=== PATIENT | male | born 1970 | race Caucasian/White ===

== ENCOUNTER 2018-03-19 00:54 | Emergency (ER) | payer OTHER ==
[~2018-03-19] VITALS: Ht 182.8 cm; Wt 81.6 kg
[~2018-03-19 00:54] MED LIST: IBU-8800 MG PO; NAPROSYN375 MG PO; NAPROSYN500 MG PO; ULTRAM50 MG PO; [UNRECOGNIZED DRUG - REMARK]
[2018-03-19] MEDS ORDERED: IBU800 MG PO (01:05)
[2018-03-19] MEDS ORDERED: PREDNISONE50 MG PO (01:05)
[2018-03-19] MEDS ORDERED: CYCLOBENZAPRINE10 MG PO (01:05)
== END 2018-03-19 01:23 | disposition home or self-care (01) ==
LOC: ED 00:54
DX: M25.511 Pain in right shoulder (principal); X50.1XXA Overexertion from prolonged static or awkward postures, initial encounter; Y93.89 Activity, other specified; Y92.89 Other specified places as the place of occurrence of the external cause; Y99.8 Other external cause status

== ENCOUNTER 2021-01-12 22:25 | Emergency (ER) | payer SELFPAY ==
[~2021-01-12] VITALS: Ht 170.1 cm; Wt 83.9 kg
[~2021-01-12 22:25] MED LIST changes: +CYCLOBENZAPRINE10 MG PO; +IBU800 MG PO; +PREDNISONE50 MG PO
== END 2021-01-13 04:14 | disposition home or self-care (01) ==
LOC: ED 22:25
DX: S66.912A Strain of unspecified muscle, fascia and tendon at wrist and hand level, left hand, initial encounter (principal); S60.222A Contusion of left hand, initial encounter; W19.XXXA Unspecified fall, initial encounter; Y93.89 Activity, other specified; Y92.89 Other specified places as the place of occurrence of the external cause; Y99.8 Other external cause status

== ENCOUNTER → 2021-05-03 | Outpatient (CLI) | payer SELFPAY | END | disposition home or self-care (01) | LOC: COVID19 16:30 | PROVIDERS: ATTEND Student in an Organized Health Care Education/Training Program | DX: Z11.52 Encounter for screening for COVID-19 (principal) ==

== ENCOUNTER 2021-05-07 11:55 | Emergency (ER) | payer SELFPAY ==
[~2021-05-07] VITALS: Ht 182.8 cm; Wt 81.6 kg
[2021-05-07 15:32] LABS: HEMATOCRIT 35.4 % (42.0-52.0); MEAN CELL VOLUME 90.8 fl (80.0-94.0); MEAN CORPUSCULAR HGB 32.1 pg (27.0-31.0); MEAN CORPUSCULAR HGB CONC 35.3 g/dl (33.0-37.0); MEAN PLATELET VOLUME 9.8 fl (9.6-12.3); PLATELET COUNT AUTOMATED 301 10*3/uL (130-400); RED CELL DISTRI WIDTH 13.2 % (0-14.5); WHITE BLOOD COUNT 29.3 10*3/uL (4.8-10.8)
[2021-05-07 15:57] LABS: TOTAL CELLS COUNTED 100 #CELLS
[2021-05-07 15:58] LABS: PLATELET SUFFICIENCY NORMAL (NORMAL)
[2021-05-07 16:33] LABS: ALKALINE PHOSPHATASE 125 U/L (45-117); BUN 15 mg/dl (7-24); CHLORIDE 80 mmol/L (98-107); CREATININE 0.86 mg/dL (0.70-1.30); LIPASE 151 U/L (73-393); POTASSIUM 3.3 mmol/L (3.5-5.1); SGOT/AST 16 IU/L (3-35); SGPT/ALT 17 U/L (12-78)
[2021-05-07 16:52] LABS: SODIUM 119 mmol/L (136-145)
[2021-05-07 17:18] LABS: ALBUMIN 1.8 gm/dl (3.1-4.5)
[2021-05-07 17:31] LABS: INTERNATIONAL NORM RATIO 1.1 (2.0-3.5)
[2021-05-08 10:25] LABS: HEMATOCRIT 32.5 % (42.0-52.0); MEAN CORPUSCULAR HGB 31.7 pg (27.0-31.0); MEAN CORPUSCULAR HGB CONC 34.8 g/dl (33.0-37.0); MEAN PLATELET VOLUME 9.5 fl (9.6-12.3); PLATELET COUNT AUTOMATED 340 10*3/uL (130-400); RED BLOOD COUNT 3.57 10*6/uL (4.50-5.90); RED CELL DISTRI WIDTH 13.2 % (0-14.5); WHITE BLOOD COUNT 28.7 10*3/uL (4.8-10.8)
[2021-05-08 10:47] LABS: ALBUMIN 1.7 gm/dl (3.1-4.5); ALKALINE PHOSPHATASE 103 U/L (45-117); BUN 14 mg/dl (7-24); CHLORIDE 86 mmol/L (98-107); POTASSIUM 3.2 mmol/L (3.5-5.1); SGOT/AST 15 IU/L (3-35); SGPT/ALT 14 U/L (12-78); SODIUM 123 mmol/L (136-145); TOTAL PROTEIN 6.7 gm/dL (6.4-8.2)
[2021-05-08 10:49] LABS: BASOPHILS 1 % (0-1); TOTAL CELLS COUNTED 100 #CELLS
[2021-05-08 10:50] LABS: PLATELET SUFFICIENCY NORMAL (NORMAL); TOXIC GRANULATION SLIGHT; VACUOLATION OF NEUTROPHILS SLIGHT
== END 2021-05-08 12:10 | disposition short-term general hospital (02) ==
LOC: ED 11:55
PROVIDERS: Emergency Medicine; Physician Assistant
DX: A41.9 Sepsis, unspecified organism (principal); R65.20 Severe sepsis without septic shock; K80.00 Calculus of gallbladder with acute cholecystitis without obstruction

== ENCOUNTER → 2021-05-25 | Outpatient (CLI) | payer MEDICAID | LOC: RAD 13:16 | PROVIDERS: ATTEND Nurse Practitioner | DX: T18.9XXA Foreign body of alimentary tract, part unspecified, initial encounter (principal); X58.XXXA Exposure to other specified factors, initial encounter ==